=== PATIENT | male | born 1955 | race Caucasian/White ===

== ENCOUNTER → 2017-01-25 | Day surgery (SDC) | payer OTHER ==
--- NOTE | 2017-01-26 15:10 | Operative Note ---
DATE OF SURGERY: 01/25/2017 PREOPERATIVE DIAGNOSIS: Urinary urgency, frequency, and nocturia. POSTOPERATIVE DIAGNOSIS: Urinary urgency, frequency, and nocturia. OPERATION: Cystoscopy. Anesthesia: Local. Indication: A 61-year-old male with the above history who presents for cystoscopic evaluation today. He also has a history of multiple sclerosis. PROCEDURE: Preop informed consent was obtained. Antibiotics were given. The patient was brought to the procedure room at [facility], placed supine and genitalia prepped and draped. Local anesthetic with lidocaine jelly was used, and flexible cystoscopy was carried out. The anterior urethra appears unremarkable. Prostate appears bilobar with mild lateral lobe growth. The bladder was entered and inspected systematically. No bladder abnormality was seen. The bladder was actively batool during the evaluation. At this point the scope was withdrawn. The procedure was terminated. The patient tolerated this well. PLAN: Given my findings today and patient's lack of improvement on Flomax, I believe he has some component of overactive bladder and this could be somewhat related to his multiple sclerosis. We discussed trying OAB medication and he says the symptoms are not severe enough to warrant medical therapy at this time and he will contact me if he would like to start that in the future. CC: Dr. Mrina CALDERÓN
== END | disposition home or self-care (01) ==
LOC: HOP 15:11
PROVIDERS: ATTEND Urology
DX: R39.15 Urgency of urination (principal); G35 Multiple sclerosis

== ENCOUNTER 2018-02-23 10:02 | Day surgery (SDC) | payer OTHER ==
[2018-02-23] MEDS ORDERED: PROPOFOL 10 MG/ML VIAL IV ONE (10:03)
[2018-02-23] MEDS ORDERED: LIDOCAINE 2% MDV (20MG/ML) 20ML VIAL IV ONE (10:03)
--- NOTE | 2018-02-24 14:30 | Operative Note ---
DATE OF SURGERY: 02/23/2018 OPERATION: COLONOSCOPY with cold forceps and cold snare polypectomies. PREOPERATIVE DIAGNOSIS: Colon cancer screening, average risk. POSTOPERATIVE DIAGNOSIS: Multiple colon polyps. PREPARATION QUALITY: Good. ESTIMATED BLOOD LOSS: Minimum. SPECIMENS: Transverse colon and sigmoid polyps. COMPLICATIONS: None apparent. PROCEDURE: After informed consent was obtained from the patient, he was placed in the left lateral decubitus position in the endoscopy suite, sedated and monitored by the department of anesthesia. Digital rectal exam was unremarkable. A well-lubricated [id number] colonoscope was inserted into the rectum and advanced to the cecum. Preparation quality was good. The cecum, cecal bulb, ileocecal valve and appendiceal orifice, and ascending colon were unremarkable. In the distal transverse colon there were noted to be 4 diminutive polyps each removed with a cold forceps. Minimal bleeding was noted at the site. The polyps were retrieved without incident. The descending colon was unremarkable. The sigmoid colon revealed a 5 mm sessile polyp removed with a cold snare with minimal bleeding noted. The polyp was retrieved. The remainder of the sigmoid colon and rectum were unrevealing. J-turn views of the anorectum were unremarkable. The endoscope was straightened, the rectal ampulla deflated, and the endoscope was removed. RECOMMENDATIONS: I would suggest the patient resume his medications and diet. He will require repeat exam in 3 years. As always, thank you for allowing me to participate in the healthcare of your patients. CC: PLACIDO Pfeiffer
--- NOTE | 2018-03-21 16:40 | Operative Note ---
ADDENDUM The descending colon revealed a diminutive polyp which was removed with a cold forceps. Specimens should include transverse colon polyp, descending colon polyp, and sigmoid colon polyp. MTDD
== END 2018-02-23 11:24 | disposition home or self-care (01) ==
LOC: HOP 10:02
PROVIDERS: ATTEND Internal Medicine Gastroenterology
DX: Z12.11 Encounter for screening for malignant neoplasm of colon (principal); D12.3 Benign neoplasm of transverse colon; D12.5 Benign neoplasm of sigmoid colon; D12.4 Benign neoplasm of descending colon; I10 Essential (primary) hypertension; E78.00 Pure hypercholesterolemia, unspecified; J45.909 Unspecified asthma, uncomplicated